=== PATIENT | male | born 1965 | race Caucasian/White ===

== ENCOUNTER 2016-05-15 13:05 | Emergency (ER) | payer OTHER ==
[~2016-05-15] VITALS: Ht 188 cm; Wt 90.7 kg
[2016-05-15 13:48] VITALS: BP 126/75
[2016-05-15] MEDS ORDERED: TETANUS-DIPTH-ACEL PERTUSSIS 0.5ML SYRG IM ONE ×2 (14:32→14:45)
== END 2016-05-15 15:45 | disposition home or self-care (01) ==
LOC: ER 13:05
DX: S83.91XA Sprain of unspecified site of right knee, initial encounter (principal); S80.01XA Contusion of right knee, initial encounter; S60.512A Abrasion of left hand, initial encounter; M54.40 Lumbago with sciatica, unspecified side; W19.XXXA Unspecified fall, initial encounter; Y93.89 Activity, other specified; Y99.8 Other external cause status; Y92.89 Other specified places as the place of occurrence of the external cause; Z23 Encounter for immunization
CPT/HCPCS: 73562; 90471; 90715